=== PATIENT | male | born 1995 | race Two or more races ===

== ENCOUNTER 2017-04-24 19:55 | Emergency (ER) | payer OTHER ==
[~2017-04-24] VITALS: Ht 175.3 cm; Wt 70.3 kg
[2017-04-24 20:12] VITALS: BP 129/74
[2017-04-24] MEDS ORDERED: IBUPROFEN 800 MG TABLET. PO ONE (20:30)
[2017-04-24] MEDS ORDERED: DIPHTH,PERTUSS(ACELL),TET TOX 0.5 ML DISP.SYRIN. VAX IM ONE (20:30)
--- NOTE | 2017-04-24 20:32 | PHYS DOC ---
Adult General Chief Complaint Chief Complaint: WRIST PAIN HPI HPI Patient is a 21 year old male since emergency department stating that he was changing a press on a machine tonight and when he went to put the casing down over the machine it hit the press and a piece of metal flew off and hit him in the right arm. He also states that he hit him in the right ear area. Patient states he believes he feels a piece of metal in his right wrist area. He is unsure when his last tetanus immunization occurred. There is no bleeding from the site. Peripheral pulses 2+ cap refill brisk less than 2 seconds. Patient's we'll range of motion of the wrist. Review of Systems Review of Systems Constitutional: Denies fever or chills [] Eyes: Denies change in visual acuity, redness, or eye pain [] HENT: Denies nasal congestion or sore throat [] Respiratory: Denies cough or shortness of breath [] Cardiovascular: No additional information not addressed in HPI [] GI: Denies abdominal pain, nausea, vomiting, bloody stools or diarrhea [] : Denies dysuria or hematuria [] Musculoskeletal: Denies back pain or joint pain [] Integument: Denies rash or skin lesions. Puncture wound to the right wrist, abrasion right ear Neurologic: Denies headache, focal weakness or sensory changes [] Endocrine: Denies polyuria or polydipsia [] Current Medications Current Medications Current Medications Medications (Trade) Dose Ordered Sig/Denis Start Time Stop Time Status Last Admin Dose Admin Diphtheria/ Tetanus/Acell Pertussis (Boostrix) 0.5 ml ONCE ONCE 04/24/17 20:30 04/24/17 20:31 DC 04/24/17 20:54 0.5 ML Ibuprofen (Motrin) 800 mg 1X ONCE 04/24/17 20:30 04/24/17 20:31 DC 04/24/17 20:52 800 MG Lidocaine/Sodium Bicarbonate (Buffered Lidocaine 1%) 20 ml 1X ONCE 04/24/17 20:45 04/24/17 20:46 DC 04/24/17 21:02 20 ML Allergies Allergies Allergies Coded Allergies Type Severity Reaction Last Updated Verified No Known Drug Allergies 04/24/17 No Physical Exam Physical Exam Constitutional: Well developed, well nourished, no acute distress, non-toxic appearance. [] HENT: Normocephalic, atraumatic, bilateral external ears normal, oropharynx moist, no oral exudates, nose normal. [] Eyes: PERRLA, EOMI, conjunctiva normal, no discharge. [] Neck: Normal range of motion, no tenderness, supple, no stridor. [] Cardiovascular:Heart rate regular rhythm Lungs & Thorax: no respiratory distress noted Skin: Warm, dry, no erythema, no rash. Two puncture wounds noted to the right wrist, abrasion noted to the right ear. Back: No tenderness Extremities: No tenderness, no cyanosis, no clubbing, ROM intact, no edema. [] Neurologic: Alert and oriented X 3, normal motor function, normal sensory function, no focal deficits noted. [] Psychologic: Affect normal, judgement normal, mood normal. [] Current Patient Data Vital Signs Vital Signs Date Time Temp Pulse Resp B/P (MAP) Pulse Ox O2 Delivery O2 Flow Rate FiO2 04/24/17 20:12 98.6 80 20 99 Room Air 98.6 EKG EKG [] Radiology/Procedures Radiology/Procedures [] Course & Med Decision Making Course & Med Decision Making Pertinent Labs and Imaging studies reviewed. (See chart for details) Both open wounds were injected with lidocaine approximately 2 mL per each. Site was cleaned with Betadine. The proximal wound did obtain a foreign body. Unable to obtain a foreign body from the distal wound. X-rays were retaken with a sensation of the foreign body noted. Patient will be placed on antibiotics due to the presence of infection after trying to obtain a foreign body. Patient will be provided with orthopedic name and number to follow up with for further evaluation. Signs and symptoms of infection was provided. Patient was provided with signs and symptoms to return back to emergency department. Patient agrees with discharge instructions treatment regimens and follow-up recommendations. [] Dragon Disclaimer Dragon Disclaimer This electronic medical record was generated, in whole or in part, using a voice recognition dictation system. Departure Departure Impression: Primary Impression: Foreign body in right forearm Disposition: HOME, SELF-CARE Condition: STABLE Referrals: NO PCP (PCP) Patient Instructions: Foreign Body-Brief, Wound Care, [id number] Additional Instructions: Activity as tolerated Medication as prescribed Keep the area clean and dry Clean the site with soap and water twice a day and apply antibiotic to the area Followup with orthopedic in 5-7 days Return to emergency department as needed for signs and symptoms that become worse. Scripts Sulfamethoxazole/Trimethoprim (BACTRIM DS TABLET) 1 Each Tablet 1 TAB PO BID, #20 TAB Prov: LAURIE CHRISTINE APRN 04/24/17 LAURIE CHRISTINE APRN Apr 24, 2017 20:32
[2017-04-24] MEDS ORDERED: LIDOCAINE 1% / SOD BICARB 8.4% 20 ML VIAL. IJ ONE (20:45)
[2017-04-24] MEDS ORDERED: SULF1TAB24 PO (22:04)
--- NOTE | 2017-04-25 07:41 | RAD ---
Right wrist radiographs History: Evaluate for retained foreign body, status post removal. Comparison: Earlier 04/24/2017. Findings: PA, lateral, and oblique views of the right wrist. No acute fracture or dislocation is identified. There has been interval removal of very small, 1 mm soft tissue foreign body which was located volar to the distal ulna. The larger radiopaque foreign body measuring 3 mm seen in the soft tissues volar to the distal ulnar shaft remain; this foreign body is located approximately 2.5 cm proximal to the radiocarpal joint. Impression: 1. There has been interval removal of the smaller, more distal radiopaque volar soft tissue foreign body. 2. Larger, more proximal volar soft tissue foreign body persists.
--- NOTE | 2017-04-25 07:43 | RAD ---
Right wrist radiographs History: Injury while punching metal plates, evaluate for foreign body. Comparison: None. Findings: PA, lateral, and oblique views of the right wrist. No acute fracture or dislocation is identified. There is a very small, 1 mm soft tissue foreign body which is located volar to the distal ulna. Larger radiopaque foreign body measuring 3 mm is seen in the soft tissues volar to the distal ulnar shaft; this foreign body is located approximately 2.5 cm proximal to the radiocarpal joint. Impression: 2 radiopaque foreign bodies.
== END 2017-04-24 22:25 | disposition home or self-care (01) ==
LOC: ER 19:55
DX: S50.851A Superficial foreign body of right forearm, initial encounter (principal); S00.411A Abrasion of right ear, initial encounter; S61.531A Puncture wound without foreign body of right wrist, initial encounter; W22.8XXA Striking against or struck by other objects, initial encounter; Y93.89 Activity, other specified; Y92.89 Other specified places as the place of occurrence of the external cause; Y99.8 Other external cause status
CPT/HCPCS: 73110; 90471; 90715; 96372; 99284-25